=== PATIENT | female | born 1940 | race Caucasian/White ===

== ENCOUNTER 2018-02-06 15:08 | Emergency (ER) | payer OTHER, BC ==
[~2018-02-06] VITALS: Ht 154.9 cm; Wt 65.9 kg
[~2018-02-06 15:08] MED LIST: ALLEGRA60 MG PO; COREG6.25 MG PO; FLEXERIL5 MG PO; FLONASE16 GM NS; LANTUS 3 M100 UNITS1 SC; LO-DOSE ASPIRIN81 M2 PO; LORTAB 5-500 T1 EACH PO; PLAVIX75 MG PO; VICTOZA0.6 MG/0.1 SQ; VITAMIN B-12500 MC4 PO; ZESTRIL5 MG PO
[2018-02-06 16:18] LABS: HEMATOCRIT 40.3 % (36.0-46.0); MCH 29.8 PG (29.0-34.0); MCHC 34.7 G/DL (30.0-36.0); MCV 85.7 FL (83-99); PLATELET COUNT 188 K/uL (156-360); RBC DIS.WIDTH-CV 13.1 % (11.8-14.6); RBC DIS.WIDTH-SD 40.9 % (39-53); WHITE BLOOD COUNT 6.6 K/uL (4.1-10.2)
[2018-02-06 16:30] LABS: GLUCOSE 129 mg/dL (70-99)
[2018-02-06 16:34] LABS: CREATININE 0.8 mg/dL (0.6-1.3); GFR ESTIMATE (CALCULATED) > 59 mL/min/
[2018-02-06 16:35] LABS: UREA NITROGEN (BUN) 16 mg/dL (9-23)
[2018-02-06 16:47] LABS: CHLORIDE 101 mEq/L (99-109); POTASSIUM 3.8 mEq/L (3.7-5.4); SODIUM 134 mEq/L (136-147)
[2018-02-06 16:50] LABS: TOTAL PROTEIN 7.4 g/dL (6.4-8.3)
[2018-02-06 16:51] LABS: TOTAL BILIRUBIN 0.7 mg/dL (0.0-1.0)
[2018-02-06 16:52] LABS: ALKALINE PHOSPHATASE 75 IU/L (3-129)
[2018-02-06 16:55] LABS: AST (GOT) 15 IU/L (2-34); DIRECT BILIRUBIN 0.3 mg/dL (0.0-0.3)
[2018-02-06 16:56] LABS: ALT (GPT) 11 IU/L (3-49); LIPASE 11 U/L (1.0-51.0)
[2018-02-06 16:59] LABS: TROP-I INTERPRETATION NEGATIVE; TROPONIN-I < 0.01 ng/mL (0.0-0.30)
[2018-02-06 17:31] LABS: APPEARANCE SL.HAZY ((CLEAR)); BILIRUBIN NEGATIVE; BLOOD SMALL; COLOR YELLOW ((YELLOW)); GLUCOSE (STRIP) NEGATIVE; KETONES NEGATIVE; LEUKOCYTES SMALL; NITRITE NEGATIVE; PROTEIN (STRIP) NEGATIVE; SPECIFIC GRAVITY 1.012 (1.000-1.030); UROBILINOGEN 0.2 MG/DL (0.2-1.0)
[2018-02-06 17:36] LABS: BACTERIA NONE SEEN /HPF; EPITHELIAL CELLS RARE /HPF; HYALINE CASTS 0-5 /LPF; MUCUS NONE SEEN /LPF; RED BLOOD CELLS 0-5 /HPF (0-5); UCUL ADDED? NO; WHITE BLOOD CELLS 0-5 /HPF (0-5)
[2018-02-06 19:43] VITALS: BP 148/86
== END 2018-02-06 19:44 | disposition home or self-care (01) ==
LOC: EME 15:08
PROVIDERS: Physician Assistant
DX: R10.9 Unspecified abdominal pain (principal); J44.9 Chronic obstructive pulmonary disease, unspecified; F17.200 Nicotine dependence, unspecified, uncomplicated; E11.9 Type 2 diabetes mellitus without complications; Z79.4 Long term (current) use of insulin; I25.2 Old myocardial infarction; K21.9 Gastro-esophageal reflux disease without esophagitis
CPT/HCPCS: 71046; 74177; 80048; 80076; 81003; 83690; 84484; 85027; 93005; 99281; 99284; J7030

== ENCOUNTER 2018-02-09 04:34 | Inpatient (IN) | payer OTHER, BC ==
[2018-02-09] VITALS (22 sets, daily range): BP systolic 79–167; BP diastolic 44–91
[~2018-02-09] VITALS: Ht 154.9 cm; Wt 75.9 kg
[2018-02-09 04:56] LABS: BASOPHIL (%) 0.3 % (0-1); BASOPHIL COUNT 0.1 K/uL (0-0.1); EOSINOPHIL (%) 2.8 % (0-5); EOSINOPHIL COUNT 0.5 K/uL (0-0.3); HEMATOCRIT 45.6 % (36.0-46.0); HEMOGLOBIN 15.3 G/DL (11.9-15.5); IMMATURE GRANULOCYTE (%) 0.6 % (0.0-0.7); LYMPHOCYTE (%) 24.8 % (15-42); LYMPHOCYTE COUNT 4.3 K/uL (1.0-2.8); MCH 29.7 PG (29.0-34.0); MCHC 33.6 G/DL (30.0-36.0); MCV 88.4 FL (83-99); MONOCYTE (%) 1.6 % (3-12); MONOCYTE COUNT 0.3 K/uL (0-0.8); NEUTROPHIL (%) 69.9 % (45-76); NEUTROPHIL COUNT 12.1 K/uL (1.8-6.4); RBC DIS.WIDTH-SD 42.3 % (39-53); RED BLOOD COUNT 5.16 M/uL (3.80-5.20); WHITE BLOOD COUNT 17.2 K/uL (4.1-10.2)
[2018-02-09 04:57] LABS: PLATELET COUNT 282 K/uL (156-360)
[2018-02-09 05:04] LABS: INTER. NORMALIZED RATIO 1.7
[2018-02-09 05:06] LABS: PTT 34.5 SEC (25-37)
[2018-02-09 05:07] LABS: AMYLASE 42 IU/L (1-118); CHLORIDE 105 mEq/L (99-109); POTASSIUM 4.4 mEq/L (3.7-5.4)
[2018-02-09 05:10] LABS: GLUCOSE 256 mg/dL (70-99); SODIUM 142 mEq/L (136-147)
[2018-02-09 05:12] LABS: CREATININE 0.9 mg/dL (0.6-1.3); GFR ESTIMATE (CALCULATED) > 59 mL/min/; SERUM ETHYL ALCOHOL < 10 mg/dL
[2018-02-09 05:13] LABS: UREA NITROGEN (BUN) 9 mg/dL (9-23)
[2018-02-09 05:15] LABS: LIPASE 13 U/L (1.0-51.0)
[2018-02-09 05:17] LABS: TROP-I INTERPRETATION NEGATIVE; TROPONIN-I 0.02 ng/mL (0.0-0.30)
[2018-02-09 07:50] LABS: BASOPHIL (%) 0.2 % (0-1); EOSINOPHIL (%) 2.5 % (0-5); EOSINOPHIL COUNT 0.4 K/uL (0-0.3); HEMATOCRIT 39.7 % (36.0-46.0); HEMOGLOBIN 13.6 G/DL (11.9-15.5); IMMATURE GRANULOCYTE (%) 0.6 % (0.0-0.7); LYMPHOCYTE (%) 4.3 % (15-42); LYMPHOCYTE COUNT 0.8 K/uL (1.0-2.8); MCHC 34.3 G/DL (30.0-36.0); MCV 87.6 FL (83-99); MONOCYTE (%) 2.8 % (3-12); MONOCYTE COUNT 0.5 K/uL (0-0.8); NEUTROPHIL (%) 89.6 % (45-76); NEUTROPHIL COUNT 15.7 K/uL (1.8-6.4); PLATELET COUNT 225 K/uL (156-360); RBC DIS.WIDTH-CV 13.2 % (11.8-14.6); RBC DIS.WIDTH-SD 42.5 % (39-53); RED BLOOD COUNT 4.53 M/uL (3.80-5.20); WHITE BLOOD COUNT 17.5 K/uL (4.1-10.2)
[2018-02-09 08:15] LABS: CHLORIDE 105 MEQ/L (99-109); CREATININE 0.8 MG/DL (0.6-1.3); GFR ESTIMATE (CALCULATED) > 59 mL/min/; GLUCOSE 235 mg/dL (70-99); HDL CHOLESTEROL 22 MG/DL (Desirable>=50); LDL CHOLESTEROL 54 mg/dL (Desirable<100); MAGNESIUM 1.7 mg/dl (1.3-2.7); NON-HDL CHOLESTEROL 75 mg/dL (Desirable<160); PHOSPHORUS 5.3 mg/dL (2.5-4.9); POTASSIUM 4.9 MEQ/L (3.7-5.4); SODIUM 136 MEQ/L (136-147); TOTAL CHOLESTEROL 97 mg/dL (Desirable<200); TRIGLYCERIDES 104 MG/DL (Normal: <150); UREA NITROGEN (BUN) 8 mg/dL (9-23)
[2018-02-09] MEDS ORDERED: ATORVASTATIN CA40 MG PO (09:21)
[2018-02-09] MEDS ORDERED: NITROSTAT0.4 MG SL (09:22)
[2018-02-09 09:23] LABS: BASE EXCESS -2.4 mEq/L (-3 to +3); BICARBONATE 26.6 mEq/L (22-26); CARBOXY HGB 2.1 % (0-5); METHEMOGLOBIN 1.7 % (0-1.5); PCO2 65 mm Hg (35-45); PO2 184 mm Hg (80-100)
[2018-02-09] MEDS ORDERED: ACID CONTROL150 MG PO (09:23)
[2018-02-09] MEDS ORDERED: XARELTO20 MG PO (09:23)
[2018-02-09 09:24] LABS: COMMENTS - BLOOD GASES R FEM; DEVICE VENT; FI02 70 %; MECHANICAL RATE 16 resp/min; MODE ACVC; PEEP 5 CM/H20; SITE ALINE; TIDAL VOLUME 400 ML; TOTAL RESP RATE 16 resp/min
[2018-02-09 09:25] LABS: pH 7.22 (7.35-7.45)
[2018-02-09 10:50] LABS: HEMOGLOBIN A1c (GLYCOHEMOGLOB) 7.3 % (Below 5.7)
[2018-02-09 11:37] LABS: BASE EXCESS -0.3 mEq/L (-3 to +3); BICARBONATE 26.7 mEq/L (22-26); COMMENTS - BLOOD GASES A+C+; DEVICE VENT; FI02 50 %; MECHANICAL RATE 22 resp/min; METHEMOGLOBIN 1.8 % (0-1.5); MODE ACVC; PCO2 53 mm Hg (35-45); PEEP 5 CM/H20; PO2 121 mm Hg (80-100); SITE LR; TIDAL VOLUME 400 ML; TOTAL RESP RATE 22 resp/min; pH 7.31 (7.35-7.45)
[2018-02-09 13:25] LABS: TROP-I INTERPRETATION POSITIVE
[2018-02-09 18:41] LABS: TROP-I INTERPRETATION POSITIVE; TROPONIN-I 56.09 ng/mL (0.0-0.30)
[2018-02-10] VITALS (21 sets, daily range): BP systolic 87–145; BP diastolic 49–114
[2018-02-10 00:52] LABS: TROP-I INTERPRETATION POSITIVE
[2018-02-10 00:54] LABS: TROPONIN-I 32.96 ng/mL (0.0-0.30)
[2018-02-10 04:56] LABS: BASOPHIL (%) 0.2 % (0-1); EOSINOPHIL (%) 3.7 % (0-5); EOSINOPHIL COUNT 0.4 K/uL (0-0.3); HEMATOCRIT 30.7 % (36.0-46.0); HEMOGLOBIN 10.5 G/DL (11.9-15.5); IMMATURE GRANULOCYTE (%) 0.5 % (0.0-0.7); LYMPHOCYTE (%) 9.1 % (15-42); LYMPHOCYTE COUNT 1.1 K/uL (1.0-2.8); MCH 30.2 PG (29.0-34.0); MCHC 34.2 G/DL (30.0-36.0); MCV 88.2 FL (83-99); MONOCYTE (%) 3.2 % (3-12); MONOCYTE COUNT 0.4 K/uL (0-0.8); NEUTROPHIL (%) 83.3 % (45-76); NEUTROPHIL COUNT 9.6 K/uL (1.8-6.4); RBC DIS.WIDTH-CV 13.4 % (11.8-14.6); RED BLOOD COUNT 3.48 M/uL (3.80-5.20); WHITE BLOOD COUNT 11.6 K/uL (4.1-10.2)
[2018-02-10 04:57] LABS: CHLORIDE 113 mEq/L (99-109); POTASSIUM 4.2 mEq/L (3.7-5.4)
[2018-02-10 04:58] LABS: MAGNESIUM 1.6 mg/dL (1.3-2.7)
[2018-02-10 04:59] LABS: GLUCOSE 134 mg/dL (70-99)
[2018-02-10 05:01] LABS: SODIUM 143 mEq/L (136-147)
[2018-02-10 05:03] LABS: CREATININE 0.7 mg/dL (0.6-1.3); GFR ESTIMATE (CALCULATED) > 59 mL/min/
[2018-02-10 05:04] LABS: UREA NITROGEN (BUN) 13 mg/dL (9-23)
[2018-02-10 06:45] LABS: PLAT.SUFFICIENCY ADEQUATE; PLATELET CLUMPS PRESENT - PLATELET COUNT APPEARS ADQ.
[2018-02-10 06:53] LABS: PLATELET COUNT UNABLE TO REPORT K/uL (156-360)
[2018-02-11] VITALS (23 sets, daily range): BP systolic 92–151; BP diastolic 47–89
[2018-02-11 06:15] LABS: BASOPHIL (%) 0.2 % (0-1); EOSINOPHIL (%) 6.1 % (0-5); EOSINOPHIL COUNT 0.6 K/uL (0-0.3); HEMATOCRIT 28.3 % (36.0-46.0); HEMOGLOBIN 9.4 G/DL (11.9-15.5); IMMATURE GRANULOCYTE (%) 0.4 % (0.0-0.7); LYMPHOCYTE (%) 15.1 % (15-42); LYMPHOCYTE COUNT 1.4 K/uL (1.0-2.8); MCH 29.2 PG (29.0-34.0); MCHC 33.2 G/DL (30.0-36.0); MCV 87.9 FL (83-99); MONOCYTE (%) 4.7 % (3-12); MONOCYTE COUNT 0.5 K/uL (0-0.8); NEUTROPHIL (%) 73.5 % (45-76); RBC DIS.WIDTH-CV 13.4 % (11.8-14.6); RBC DIS.WIDTH-SD 43.2 % (39-53); RED BLOOD COUNT 3.22 M/uL (3.80-5.20); WHITE BLOOD COUNT 9.5 K/uL (4.1-10.2)
[2018-02-11 06:28] LABS: PLATELET COUNT 151 K/uL (156-360)
[2018-02-11 06:41] LABS: CHLORIDE 111 MEQ/L (99-109); CREATININE 0.7 MG/DL (0.6-1.3); GFR ESTIMATE (CALCULATED) > 59 mL/min/; GLUCOSE 131 mg/dL (70-99); POTASSIUM 3.8 MEQ/L (3.7-5.4); SODIUM 139 MEQ/L (136-147); UREA NITROGEN (BUN) 12 mg/dL (9-23)
[2018-02-11 06:49] LABS: MAGNESIUM 2.1 mg/dl (1.3-2.7); PHOSPHORUS 2.3 mg/dL (2.5-4.9)
[2018-02-11 10:20] LABS: BASE EXCESS -1.3 mEq/L (-3 to +3); CARBOXY HGB 1.6 % (0-5); METHEMOGLOBIN 1.6 % (0-1.5)
[2018-02-11 10:21] LABS: COMMENTS - BLOOD GASES AC+; DEVICE 840 VENTILATOR; FI02 30 %; MECHANICAL RATE 22 resp/min; MODE SIMV; PCO2 31 mm Hg (35-45); PEEP 5 CM/H20; PO2 73 mm Hg (80-100); PRES. SUPPORT 12 CM/H2O; SITE RR; TIDAL VOLUME 400 ML; TOTAL RESP RATE 22 resp/min; pH 7.46 (7.35-7.45)
[2018-02-12] VITALS (18 sets, daily range): BP systolic 84–152; BP diastolic 43–81
[2018-02-12 05:17] LABS: BASOPHIL (%) 0.3 % (0-1); EOSINOPHIL (%) 6.8 % (0-5); EOSINOPHIL COUNT 0.5 K/uL (0-0.3); HEMATOCRIT 27.7 % (36.0-46.0); HEMOGLOBIN 9.4 G/DL (11.9-15.5); IMMATURE GRANULOCYTE (%) 0.7 % (0.0-0.7); LYMPHOCYTE (%) 21.6 % (15-42); LYMPHOCYTE COUNT 1.5 K/uL (1.0-2.8); MCH 30.1 PG (29.0-34.0); MCHC 33.9 G/DL (30.0-36.0); MCV 88.8 FL (83-99); MONOCYTE (%) 5.5 % (3-12); MONOCYTE COUNT 0.4 K/uL (0-0.8); NEUTROPHIL (%) 65.1 % (45-76); NEUTROPHIL COUNT 4.4 K/uL (1.8-6.4); PLATELET COUNT 143 K/uL (156-360); RBC DIS.WIDTH-CV 13.6 % (11.8-14.6); RBC DIS.WIDTH-SD 44.8 % (39-53); RED BLOOD COUNT 3.12 M/uL (3.80-5.20); WHITE BLOOD COUNT 6.8 K/uL (4.1-10.2)
[2018-02-12 05:53] LABS: CHLORIDE 114 MEQ/L (99-109); CREATININE 0.6 MG/DL (0.6-1.3); GFR ESTIMATE (CALCULATED) > 59 mL/min/; GLUCOSE 170 mg/dL (70-99); MAGNESIUM 1.9 mg/dl (1.3-2.7); PHOSPHORUS 2.9 mg/dL (2.5-4.9); POTASSIUM 4.1 MEQ/L (3.7-5.4); SODIUM 142 MEQ/L (136-147); UREA NITROGEN (BUN) 13 mg/dL (9-23)
[2018-02-12 13:42] LABS: APPEARANCE CLEAR ((CLEAR)); BILIRUBIN NEGATIVE; BLOOD NEGATIVE; COLOR YELLOW ((YELLOW)); GLUCOSE (STRIP) NEGATIVE; KETONES NEGATIVE; LEUKOCYTES NEGATIVE; NITRITE NEGATIVE; PROTEIN (STRIP) NEGATIVE; SPECIFIC GRAVITY 1.023 (1.000-1.030); UCUL ADDED? NO; UROBILINOGEN 0.2 MG/DL (0.2-1.0)
[2018-02-12 17:52] LABS: BASOPHIL (%) 0.3 % (0-1); EOSINOPHIL (%) 6.4 % (0-5); EOSINOPHIL COUNT 0.4 K/uL (0-0.3); HEMATOCRIT 29.1 % (36.0-46.0); HEMOGLOBIN 9.6 G/DL (11.9-15.5); LYMPHOCYTE (%) 20.4 % (15-42); LYMPHOCYTE COUNT 1.4 K/uL (1.0-2.8); MCH 29.6 PG (29.0-34.0); MCV 89.8 FL (83-99); MONOCYTE (%) 5.9 % (3-12); MONOCYTE COUNT 0.4 K/uL (0-0.8); NEUTROPHIL COUNT 4.4 K/uL (1.8-6.4); PLATELET COUNT 144 K/uL (156-360); RBC DIS.WIDTH-CV 13.6 % (11.8-14.6); RBC DIS.WIDTH-SD 44.9 % (39-53); RED BLOOD COUNT 3.24 M/uL (3.80-5.20); WHITE BLOOD COUNT 6.7 K/uL (4.1-10.2)
[2018-02-12 18:07] LABS: CHLORIDE 113 MEQ/L (99-109); POTASSIUM 4.3 MEQ/L (3.7-5.4); SODIUM 138 MEQ/L (136-147)
[2018-02-12 18:11] LABS: BASE EXCESS -3.2 mEq/L (-3 to +3); BICARBONATE 21.1 mEq/L (22-26); CARBOXY HGB 1.6 % (0-5); COMMENTS - BLOOD GASES A+C+; DEVICE PB 840; FI02 30 %; MECHANICAL RATE 18 resp/min; METHEMOGLOBIN 1.4 % (0-1.5); MODE SIMV; PCO2 34 mm Hg (35-45); PEEP 5 CM/H20; PO2 64 mm Hg (80-100); PRES. SUPPORT 12 CM/H2O; SITE RR; TIDAL VOLUME 400 ML; TOTAL RESP RATE 21 resp/min
[2018-02-12 18:13] LABS: CREATININE 0.6 MG/DL (0.6-1.3); GFR ESTIMATE (CALCULATED) > 59 mL/min/; GLUCOSE 197 mg/dL (70-99); UREA NITROGEN (BUN) 17 mg/dL (9-23)
[2018-02-12 18:16] LABS: TROP-I INTERPRETATION POSITIVE; TROPONIN-I 5.98 ng/mL (0.0-0.30)
[2018-02-13] VITALS (17 sets, daily range): BP systolic 95–201; BP diastolic 50–116
[2018-02-13 05:49] LABS: BASOPHIL (%) 0.3 % (0-1); EOSINOPHIL (%) 5.7 % (0-5); EOSINOPHIL COUNT 0.4 K/uL (0-0.3); HEMATOCRIT 30.1 % (36.0-46.0); HEMOGLOBIN 9.9 G/DL (11.9-15.5); IMMATURE GRANULOCYTE (%) 1.2 % (0.0-0.7); LYMPHOCYTE (%) 19.3 % (15-42); LYMPHOCYTE COUNT 1.3 K/uL (1.0-2.8); MCHC 32.9 G/DL (30.0-36.0); MCV 88.3 FL (83-99); MONOCYTE COUNT 0.4 K/uL (0-0.8); NEUTROPHIL (%) 67.5 % (45-76); NEUTROPHIL COUNT 4.4 K/uL (1.8-6.4); PLATELET COUNT 162 K/uL (156-360); RBC DIS.WIDTH-CV 13.6 % (11.8-14.6); RED BLOOD COUNT 3.41 M/uL (3.80-5.20); WHITE BLOOD COUNT 6.5 K/uL (4.1-10.2)
[2018-02-13 06:15] LABS: TROP-I INTERPRETATION POSITIVE; TROPONIN-I 6.44 ng/mL (0.0-0.30)
[2018-02-13 06:19] LABS: CHLORIDE 112 MEQ/L (99-109); CREATININE 0.6 MG/DL (0.6-1.3); GFR ESTIMATE (CALCULATED) > 59 mL/min/; GLUCOSE 173 mg/dL (70-99); MAGNESIUM 1.9 mg/dl (1.3-2.7); PHOSPHORUS 2.9 mg/dL (2.5-4.9); POTASSIUM 4.2 MEQ/L (3.7-5.4); SODIUM 140 MEQ/L (136-147); UREA NITROGEN (BUN) 15 mg/dL (9-23)
[2018-02-13 15:38] LABS: BASE EXCESS 0.7 mEq/L (-3 to +3); BICARBONATE 23.8 mEq/L (22-26); CARBOXY HGB 1.9 % (0-5); DEVICE VENT; FI02 30 %; METHEMOGLOBIN 1.6 % (0-1.5); MODE SPONT; PCO2 32 mm Hg (35-45); PO2 62 mm Hg (80-100); SITE RR; pH 7.48 (7.35-7.45)
[2018-02-13 15:39] LABS: CONTINUOUS POS AIRWAY PRESSURE 5 cm H2O; PRES. SUPPORT 15 CM/H2O; TOTAL RESP RATE 30 resp/min
[2018-02-13] MEDS ORDERED: DUONEB 2.5-0.5 M3 ML AEROSOL (15:51)
== END 2018-02-13 21:45 | DRG 250 ==
LOC: EME → EDBD 04:34 → EME 05:30 → CATH 05:30 → ENRESERV 06:17 → 4WEST 06:24
PROVIDERS: Emergency Medicine; Internal Medicine Cardiovascular Disease; Specialist
PROC: 02703ZZ Dilation of Coronary Artery, One Artery, Percutaneous Approach (ICD-10-PCS; principal; 2018-02-09)
PROC: B2111ZZ Fluoroscopy of Multiple Coronary Arteries using Low Osmolar Contrast (ICD-10-PCS; principal; 2018-02-09)
PROC: B2151ZZ Fluoroscopy of Left Heart using Low Osmolar Contrast (ICD-10-PCS; principal; 2018-02-09)
PROC: 5A1955Z Respiratory Ventilation, Greater than 96 Consecutive Hours (ICD-10-PCS; principal; 2018-02-09)
PROC: 4A023N7 Measurement of Cardiac Sampling and Pressure, Left Heart, Percutaneous Approach (ICD-10-PCS; principal; 2018-02-09)
PROC: 0BH17EZ Insertion of Endotracheal Airway into Trachea, Via Natural or Artificial Opening (ICD-10-PCS; 2018-02-09)
PROC: 0BH17EZ Insertion of Endotracheal Airway into Trachea, Via Natural or Artificial Opening (ICD-10-PCS; 2018-02-13)
PROC: 5A1935Z Respiratory Ventilation, Less than 24 Consecutive Hours (ICD-10-PCS; 2018-02-13)
PROC: 5A12012 Performance of Cardiac Output, Single, Manual (ICD-10-PCS; 2018-02-13)
PROC: B54BZZA Ultrasonography of Right Lower Extremity Veins, Guidance (ICD-10-PCS; 2018-02-13)
PROC: 06HM33Z Insertion of Infusion Device into Right Femoral Vein, Percutaneous Approach (ICD-10-PCS; 2018-02-13)
DX: I21.02 ST elevation (STEMI) myocardial infarction involving left anterior descending coronary artery (principal); R57.0 Cardiogenic shock; I11.0 Hypertensive heart disease with heart failure; I50.21 Acute systolic (congestive) heart failure; J96.01 Acute respiratory failure with hypoxia; J96.02 Acute respiratory failure with hypercapnia; A41.9 Sepsis, unspecified organism; J18.9 Pneumonia, unspecified organism; G93.41 Metabolic encephalopathy; I46.9 Cardiac arrest, cause unspecified; Z66 Do not resuscitate; E83.42 Hypomagnesemia; E11.51 Type 2 diabetes mellitus with diabetic peripheral angiopathy without gangrene; I25.10 Atherosclerotic heart disease of native coronary artery without angina pectoris; E78.00 Pure hypercholesterolemia, unspecified; I25.5 Ischemic cardiomyopathy; J44.9 Chronic obstructive pulmonary disease, unspecified; K21.9 Gastro-esophageal reflux disease without esophagitis; F17.200 Nicotine dependence, unspecified, uncomplicated; E66.9 Obesity, unspecified; Z88.7 Allergy status to serum and vaccine; Z91.012 Allergy to eggs; Z95.5 Presence of coronary angioplasty implant and graft; Z95.820 Peripheral vascular angioplasty status with implants and grafts; Z68.27 Body mass index [BMI] 27.0-27.9, adult
CPT/HCPCS: 36600; 70450; 71045; 71046; 74177; 80048; 80048 91; 80061; 80076; 80202; 81003; 82150; 82803; 82948; 83036; 83605; 83690; 83735; 84100; 84484; 85025; 85025 91; 85027; 85347; 85610; 85730; 86850; 86900; 86901; 87040; 87070; 87205; 87641; 93005; 93306; 94002; 94003; 94640; 94640 76; 94760; 94799; 99202; 99281; 99284; 99285; C1725; C1751; C1769; C1887; C1894; G0480; J0153; J0171; J1644; J1650; J1652; J1815; J1940; J1956; J2250; J3010; J3370; J3475; J7030; J7040; J7050; J7644; S0028